=== PATIENT | male | born 1990 | race Caucasian/White ===

== ENCOUNTER 2016-12-28 07:56 | Emergency (ER) | payer OTHER ==
--- NOTE | 2016-12-28 11:52 | ED CLINICAL REPORT ---
Clinical Report - Physicians/Mid Levels Located Within [facility] [address] [place] [address] 12/28/2016 7:59 Patient: GRZEGORZ GONZALEZ Arrived- By private vehicle. Historian- patient. HISTORY OF PRESENT ILLNESS Chief Complaint: VOMITING and DIARRHEA. This started this morning, is still present (staying the same) and is now gone. It was abrupt in onset and has been constant. No recent travel. He has had nausea, vomiting and diarrhea. No flank pain, history of possible bad food exposure or known contact with a sick individual. Has not recently been camping or on antibiotics. The illness is described as moderate. (described vomit and diarrhea as nbnb. had egg salad yesterday. no other unusual foods.). Similar symptoms previously: None. Recent medical care: Not recently seen/assessed. REVIEW OF SYSTEMS No fever, chest pain, difficulty breathing or skin rash. All systems otherwise negative, except as recorded above. PAST HISTORY See nurses notes. Medications: None. Allergies: None. SOCIAL HISTORY Never smoker. No alcohol use or drug use. Is a local resident. ADDITIONAL NOTES The nursing notes have been reviewed. PHYSICAL EXAM Vital Signs: Blood pressure normal. Oxygen saturation normal. Appearance: Alert. Oriented X3. No acute distress. Eyes: Pupils equal, round and reactive to light. Eyes normal inspection. ENT: Pharynx normal. Neck: Normal inspection. Neck supple. CVS: Normal heart rate and rhythm. Heart sounds normal. Pulses normal. Respiratory: No respiratory distress. Wheezing present. Rhonchi present. Rales present. Breath sounds normal. Abdomen: Soft and nontender. Bowel sounds normal. Back: Normal inspection. Skin: Skin warm and dry. Normal skin color. No rash. Normal skin turgor. Extremities: Extremities exhibit normal ROM. No lower extremity edema. LABS, X-RAYS, AND EKG Laboratory Tests: UA-Culture if indicated: (DARRON: 12/28/2016 09:06) ( MsgRcvd 12/28/2016 09:41) Final results Test Result Flag Units (Reference) URINE COLOR YELLOW URINE APPEARANCE CLEAR URINE GLUCOSE NEGATIVE (NEGATIVE) URINE BILIRUBIN NEGATIVE (NEGATIVE) URINE KETONE NEGATIVE (NEGATIVE) URINE SPECIFIC GRAVITY 1.020 (1.010-1.030) URINE PH 8.5 H (5.0-8.0) URINE PROTEIN TRACE (NEGATIVE) URINE UROBILINOGEN 0.2 EU/dL (0.2-1.0) URINE NITRITE NEGATIVE (NEGATIVE) URINE BLOOD NEGATIVE (NEGATIVE) URINE LEUK ESTERASE NEGATIVE (NEGATIVE) URINE RBC NONE SEEN rbc/hpf (0-1) URINE WBC 0-1 wbc/hpf (0-1) URINE EPITHELIAL CELLS 0-1 EPI/hpf (0-5) URINE BACTERIA FEW (1+) (NONE SEEN) URINE COMMENT CULT NOT INDICATED URINE CULTURES ARE SET-UP BASED ON THE FOLLOWING CRITERIA:POSITIVE NITRITEPOSITIVE LEUKOCYTE ESTERASEGREATER THAN 10 WHITE BLOOD CELLSMODERATE (2+) OR GREATER BACTERIA CBC w Diff: (DARRON: 12/28/2016 09:00) ( [facility] 12/28/2016 09:09) Final results Test Result Flag Units (Reference) WHITE BLOOD COUNT 10.9 K/uL (4.5-11.5) RED BLOOD COUNT 5.87 M/uL (4.50-5.90) HEMOGLOBIN 16.5 gm/dL (13.5-17.5) HEMATOCRIT 49.4 % (41.0-53.0) MEAN CELL VOLUME 84 fL (80-100) MEAN CORPUSCULAR HGB 28 pg (26-34) MEAN CORPUSCULAR HGB CONC 33 g/dL (31-37) RED CELL DISTRIBUTION WIDTH 13.2 % (11.6-14.8) PLATELET COUNT 265 K/uL (150-400) NEUTROPHIL % 94.1 H % (50-75) LYMPH % 2.9 L % (25-40) MONO % 2.6 L % (3-14) EOSINOPHIL % 0.4 % (0-4) BASOPHIL % 0 % (0-2) CMP: (DARRON: 12/28/2016 09:00) ( [facility] 12/28/2016 09:30) Final results Test Result Flag Units (Reference) GLUCOSE 136 H mg/dL (70-110) BUN 17 mg/dL (7-18) CREATININE 1.0 mg/dL (0.6-1.3) Estimated GFR >60 mL/min Estimated GFR- >60 mL/min Note: Persistent reduction over 3 months in eGFR<60 mL/min/1.73 m2 defines CKD. Patients with eGFR values>=60 mL/min/1.73 m2 may also have CKD if evidence ofpersistent proteinuria. Additional information may be foundat www.kidney.org. SODIUM 140 mmol/L (136-145) POTASSIUM 4.3 mmol/L (3.5-5.1) CHLORIDE 101 mmol/L (98-107) CARBON DIOXIDE 26 mmol/L (21-32) CALCIUM 8.6 mg/dL (8.5-10.1) TOTAL PROTEIN 8.0 g/dL (6.4-8.2) ALBUMIN 3.9 g/dL (3.3-5.0) BILIRUBIN, TOTAL 0.7 mg/dL (0.0-1.0) ALKALINE PHOSPHATASE 89 U/L (46-116) AST (SGOT) 31 U/L (15-37) ALT (SGPT) 76 U/L (12-78) LIPASE 103 U/L (73-393) . PROGRESS AND PROCEDURES Course of Care: Patient is stable. Patient/family counseled. Old medical records ordered. Old records unavailable. Disposition: Discharged. Condition: stable. CLINICAL IMPRESSION Vomiting with nausea. Food poisoning. INSTRUCTIONS No driving or operating machinery while taking medication. Drink plenty of fluids. Warnings: Further evaluation is necessary. GENERAL WARNINGS: Return or contact your physician immediately if your condition worsens or changes unexpectedly, if not improving as expected, or if other problems arise. Prescription Medications: Zofran 4 mg: Take 1 orally every six hours as needed for nausea/vomiting. Dispense ten (10). No refills. Substitution is permissible. Phenergan suppositories 25 mg: Insert 1 rectally every 4 to 6 hours as needed for nausea or vomiting. Dispense ten (10). No refills. Substitution is permissible. Understanding of the discharge instructions verbalized by patient and family. Follow-up with: [facility], , , [address], , [facility] [address] Follow up tomorrow. (Electronically signed by Antonio Gutiérrez MD 12/29/2016 22:02)
--- NOTE | 2016-12-28 11:52 | ED NURSING NOTES ---
Clinical Report - Nurses [facility] [address] [place] [address] 12/28/2016 7:59 Patient: GRZEGORZ GONZALEZ TRIAGE Triage time 08:04. Acuity: LEVEL 4. Chief Complaint: NAUSEA and VOMITING. 08:09 12/28/16. Alert. No acute distress. SEPSIS SCREEN: Sepsis Screen. Negative (no infection suspected/documented). SHIRA COMA SCORE: [place] Coma Scale: 15- eyes open spontaneously (4); best verbal response- oriented x 4 (5); best motor response- obeys commands (6). --08:09 Cecilia Tena R.N. 08:04 12/28/16. BP: 141/80. HR: 100. RR: 17. O2 saturation: 98%. Temp: 98 F. Pain level now: 10. Additional comments: stomach pain. --08:09 Cecilia Tena R.N. Weight: 117.9 kg estimated. Height/Length: 72 inches. BMI: 35.3. --12:04 Cecilia Tena R.N. Medications None. --08:05 Cecilia Tena R.N. Allergies None. --08:06 Cecilia Tena R.N. History Historian: patient. This started today. ( SOB. pt states "I have to force myself to breathe, it's not voluntary"). Treatment DIRECTOR LONG TERM CARE: (2 tabs pepto bismal). PAST MEDICAL HX: Immunizations: status is unknown. SOCIAL HX: Never smoker. Occasional alcohol use. No drug use. FALL RISK ASSESSMENT: Fall risk assessment completed. No fall risk identified. NUTRITIONAL RISK ASSESSMENT: The nutritional risk assessment revealed no deficiencies. FUNCTIONAL ASSESSMENT: Functional assessment: no impairments noted. LEARNING NEEDS ASSESSMENT: The learning needs assessment revealed no barriers. SKIN INTEGRITY ASSESSMENT: Skin integrity risk assessment completed. No skin integrity risk identified. --08:09 Cecilia Tena R.N. PROBLEMS: Obesity. --08:06 Cecilia Tena R.N. Interventions ID band on patient. To treatment room. --08:09 Cecilia Tena R.N. PHYSICAL ASSESSMENT late entry - 09:10. GENERAL / NEURO / PSYCH: Alert. Oriented X 4. Appears in no acute distress. Appears anxious. CVS: Capillary refill less than 2 seconds. Pulses within normal limits. SKIN: Skin intact. Skin is warm and dry. Normal skin turgor. --09:22 Cecilia Tena R.N. NURSING PROGRESS NOTES 08:59 12/28/2016 Site #1 started via IV in the right antecubital space with an 20g angiocath; one attempt. Blood drawn: rainbow set. Labeled in the presence of the patient and sent to the lab. Saline lock flushed with 5 mL saline. --09:09 Cecilia Tena R.N. 09:08 12/28/2016 GI cocktail white * PO 50mL aluminum hydrox-simethicone 30mL lidocaine viscous 2% 20mL --09:18 Cecilia Tena R.N. 09:09 12/28/2016 Started bag #1 1000 mL IV Fluids IV NS (Saline); bolus of 1000 mL over 1 hour(s) via site #1. Allergies verified and confirmed 5 rights. IV patency established. IV site checked: no pain, redness, or swelling. IV flushed thoroughly pre- and post-medication administration. --09:09 Cecilia Tena R.N. 09:09 12/28/2016 Zofran (Ondansetron HCl) IVP 4 mg given over 2 minute(s) via site #1. Allergies verified and confirmed 5 rights. IV patency established. IV site checked: no pain, redness, or swelling. IV flushed thoroughly pre- and post-medication administration. IVP given by RN. --09:09 Cecilia Tena R.N. 09:10 12/28/16. Two patient identifiers checked. Call light placed in reach. Side rails up x 1. Bed placed in lowest position. Brakes of bed on. --09:10 Cecilia Tena R.N. 09:20 12/28/16. Patient ID band checked for patient name and birthdate: patient confirmed. Clean catch urine collected with return of yellow-colored urine; sample sent to lab for urinalysis. Specimen labeled in the presence of the patient. --09:20 Cecilia Tena R.N. 09:27 12/28/16. Reassurance given to the patient. Call light placed in reach. Side rails up x 1. Bed placed in lowest position. Brakes of bed on. Patient and family informed about reason for wait and about plan of care. --09:27 Cecilia Tena R.N. 09:30 12/28/16. Reassessment after fluids administered and medication administered. He is calm and resting quietly. Overall patient status is improved. ( Pt states he feels better after zofran and GI cocktail. Room lights dimmed to promote rest.). --09:30 Cecilia Tena R.N. 10:12 12/28/16. Patient and family informed about reason for wait and about plan of care. ( pt states he is no longer nauseous and does not have any pain. pt states he was able to sleep for a bit.). --10:12 Cecilia Tena R.N. 10:27 12/28/2016 IV Fluids IV NS Discontinued: bag #1 completed. Total amount infused: 1000 mL. IV patency established. IV site checked: no pain, redness, or swelling. IV flushed thoroughly. --10:27 Cecilia Tena R.N. 10:27 12/28/16. ( pt ambulated to restroom.). --10:27 Cecilia Tena R.N. 11:02 12/28/16. Overall patient status is the same- he states feels the same. GENERAL / NEURO / PSYCH: (anxious). He is alert, appears uncomfortable and is oriented and cooperative. RESPIRATORY: No respiratory distress. Respirations not labored. SKIN: Skin is warm, dry, warm and dry. --11:02 Jailyn Melendez R.N. 11:00 12/28/16. BP: 124/64. HR: 93. RR: 18. O2 saturation: 100% on nasal cannula at 2 liters/minute. Pain level now: 0/10. --11:02 Jailyn Melendez R.N. late entry - 11:22. Patient informed about reason for wait and about plan of care. ( pt states he feels SOB again. Dr. Gutiérrez notified. water given to pt.). --11:30 Cecilia Tena R.N. 11:27 12/28/16. RR: 16. O2 saturation: 99%. --11:30 Cecilia Tena R.N. DISPOSITION / DISCHARGE 12:02 12/28/16. No learning barriers present. Discharge instructions provided and reviewed. Reviewed warnings. Reviewed medication(s). Treatments reviewed. Reviewed diet. Work note given. Patient and resistance brazer verbalized understanding. Written instructions provided in Persian. The patient was discharged by the physician. He was discharged home. He left the Emergency Department ambulatory. --12:02 Cecilia Tena R.N. 12:00 12/28/16. BP: 125/77. HR: 98. RR: 16. O2 saturation: 100%. Temp: deferred. Pain level now: 12/03. --12:02 Cecilia Tena R.N. Departure time: 12:02. --12:03 Cecilia Tena R.N. Locked/Released at 12/28/2016 12:05 by Cecilia Tena R.N.
--- NOTE | 2016-12-28 11:52 | ED ORDER SUMMARY ---
..... Patient: GRZEGORZ GONZALEZ OrderSheet [facility] VisitID: [id number] [address] [place] [address] 26y, M Registration Date/Time: 12/28/2016 ORDER SHEET Weight: 117.9 kg (estimated) Allergies: None GENERAL ORDERS: CBC w Diff Urgent (08:12/28/2016 Renee Henson) (8:14 Lonnie R.N.) CMP Urgent (08:12/28/2016 Renee Henson) (8:14 Lonnie R.N.) UA-Culture if indicated Urgent (08:12/28/2016 Renee Henson) (8:14 Lonnie R.N.) Lipase Urgent (08:12/28/2016 Renee Henson) (8:14 RMnilda R.N.) CT Abd/Pel w Cont (No) (gfr > 60) Urgent (09:12/28/2016 Renee Henson) (Cancelled: Other9:14 Renee Henson) MEDICATION ORDERS: GI Cocktail WHITE PO 30 mL (NOW) (08:14 12/28/2016 Renee Henson) (Ack 8:14 RMarsden R.N.) (9:18 RMarsden R.N.) IV FLUIDS: IV NS : initial bolus 1000 mL (1000 mL/hr), then none - for X1 (NOW) (08:13 12/28/2016 Renee Henson) (Ack 8:14 Lonnie R.N.) (9:09 Lonnie R.N.) Zofran IV 4 mg (NOW) (08:12/28/2016 Renee Henson) (Ack 8:14 RMnilda R.N.) (9:09 Lonnie R.N.) ORDER SHEET NOTES: [Electronically signed by Cecilia Tena R.N. (12:12/28/2016)] [Electronically signed by Antonio Gutiérrez MD (22:02 12/29/2016)] [Electronically locked/signed by Cecilia Tena R.N. (12:12/28/2016)]
--- NOTE | 2016-12-28 11:52 | ED CLINICAL REPORT ---
Clinical Report - Physicians/Mid Levels [facility] [address] [place] [address] 12/28/2016 7:59 Patient: GRZEGORZ GONZALEZ Arrived- By private vehicle. Historian- patient. HISTORY OF PRESENT ILLNESS Chief Complaint: VOMITING and DIARRHEA. This started this morning, is still present (staying the same) and is now gone. It was abrupt in onset and has been constant. No recent travel. He has had nausea, vomiting and diarrhea. No flank pain, history of possible bad food exposure or known contact with a sick individual. Has not recently been camping or on antibiotics. The illness is described as moderate. (described vomit and diarrhea as nbnb. had egg salad yesterday. no other unusual foods.). Similar symptoms previously: None. Recent medical care: Not recently seen/assessed. REVIEW OF SYSTEMS No fever, chest pain, difficulty breathing or skin rash. All systems otherwise negative, except as recorded above. PAST HISTORY See nurses notes. Medications: None. Allergies: None. SOCIAL HISTORY Never smoker. No alcohol use or drug use. Is a local resident. ADDITIONAL NOTES The nursing notes have been reviewed. PHYSICAL EXAM Vital Signs: Blood pressure normal. Oxygen saturation normal. Appearance: Alert. Oriented X3. No acute distress. Eyes: Pupils equal, round and reactive to light. Eyes normal inspection. ENT: Pharynx normal. Neck: Normal inspection. Neck supple. CVS: Normal heart rate and rhythm. Heart sounds normal. Pulses normal. Respiratory: No respiratory distress. Wheezing present. Rhonchi present. Rales present. Breath sounds normal. Abdomen: Soft and nontender. Bowel sounds normal. Back: Normal inspection. Skin: Skin warm and dry. Normal skin color. No rash. Normal skin turgor. Extremities: Extremities exhibit normal ROM. No lower extremity edema. LABS, X-RAYS, AND EKG Laboratory Tests: UA-Culture if indicated: (DARRON: 12/28/2016 09:06) ( MsgRcvd 12/28/2016 09:41) Final results Test Result Flag Units (Reference) URINE COLOR YELLOW URINE APPEARANCE CLEAR URINE GLUCOSE NEGATIVE (NEGATIVE) URINE BILIRUBIN NEGATIVE (NEGATIVE) URINE KETONE NEGATIVE (NEGATIVE) URINE SPECIFIC GRAVITY 1.020 (1.010-1.030) URINE PH 8.5 H (5.0-8.0) URINE PROTEIN TRACE (NEGATIVE) URINE UROBILINOGEN 0.2 EU/dL (0.2-1.0) URINE NITRITE NEGATIVE (NEGATIVE) URINE BLOOD NEGATIVE (NEGATIVE) URINE LEUK ESTERASE NEGATIVE (NEGATIVE) URINE RBC NONE SEEN rbc/hpf (0-1) URINE WBC 0-1 wbc/hpf (0-1) URINE EPITHELIAL CELLS 0-1 EPI/hpf (0-5) URINE BACTERIA FEW (1+) (NONE SEEN) URINE COMMENT CULT NOT INDICATED URINE CULTURES ARE SET-UP BASED ON THE FOLLOWING CRITERIA:POSITIVE NITRITEPOSITIVE LEUKOCYTE ESTERASEGREATER THAN 10 WHITE BLOOD CELLSMODERATE (2+) OR GREATER BACTERIA CBC w Diff: (DARRON: 12/28/2016 09:00) ( [facility] 12/28/2016 09:09) Final results Test Result Flag Units (Reference) WHITE BLOOD COUNT 10.9 K/uL (4.5-11.5) RED BLOOD COUNT 5.87 M/uL (4.50-5.90) HEMOGLOBIN 16.5 gm/dL (13.5-17.5) HEMATOCRIT 49.4 % (41.0-53.0) MEAN CELL VOLUME 84 fL (80-100) MEAN CORPUSCULAR HGB 28 pg (26-34) MEAN CORPUSCULAR HGB CONC 33 g/dL (31-37) RED CELL DISTRIBUTION WIDTH 13.2 % (11.6-14.8) PLATELET COUNT 265 K/uL (150-400) NEUTROPHIL % 94.1 H % (50-75) LYMPH % 2.9 L % (25-40) MONO % 2.6 L % (3-14) EOSINOPHIL % 0.4 % (0-4) BASOPHIL % 0 % (0-2) CMP: (DARRON: 12/28/2016 09:00) ( [facility] 12/28/2016 09:30) Final results Test Result Flag Units (Reference) GLUCOSE 136 H mg/dL (70-110) BUN 17 mg/dL (7-18) CREATININE 1.0 mg/dL (0.6-1.3) Estimated GFR >60 mL/min Estimated GFR- >60 mL/min Note: Persistent reduction over 3 months in eGFR<60 mL/min/1.73 m2 defines CKD. Patients with eGFR values>=60 mL/min/1.73 m2 may also have CKD if evidence ofpersistent proteinuria. Additional information may be foundat www.kidney.org. SODIUM 140 mmol/L (136-145) POTASSIUM 4.3 mmol/L (3.5-5.1) CHLORIDE 101 mmol/L (98-107) CARBON DIOXIDE 26 mmol/L (21-32) CALCIUM 8.6 mg/dL (8.5-10.1) TOTAL PROTEIN 8.0 g/dL (6.4-8.2) ALBUMIN 3.9 g/dL (3.3-5.0) BILIRUBIN, TOTAL 0.7 mg/dL (0.0-1.0) ALKALINE PHOSPHATASE 89 U/L (46-116) AST (SGOT) 31 U/L (15-37) ALT (SGPT) 76 U/L (12-78) LIPASE 103 U/L (73-393) . PROGRESS AND PROCEDURES Course of Care: Patient is stable. Patient/family counseled. Old medical records ordered. Old records unavailable. Disposition: Discharged. Condition: stable. CLINICAL IMPRESSION Vomiting with nausea. Food poisoning. INSTRUCTIONS No driving or operating machinery while taking medication. Drink plenty of fluids. Warnings: Further evaluation is necessary. GENERAL WARNINGS: Return or contact your physician immediately if your condition worsens or changes unexpectedly, if not improving as expected, or if other problems arise. Prescription Medications: Zofran 4 mg: Take 1 orally every six hours as needed for nausea/vomiting. Dispense ten (10). No refills. Substitution is permissible. Phenergan suppositories 25 mg: Insert 1 rectally every 4 to 6 hours as needed for nausea or vomiting. Dispense ten (10). No refills. Substitution is permissible. Understanding of the discharge instructions verbalized by patient and family. Follow-up with: [facility], , , [address], , [facility] [address] Follow up tomorrow. (Electronically signed by Antonio Gutiérrez MD 12/29/2016 22:02)
--- NOTE | 2016-12-28 11:52 | ED ORDER SUMMARY ---
..... Patient: GRZEGORZ GONZALEZ OrderSheet [facility] VisitID: [id number] [address] [place] [address] 26y, M Registration Date/Time: 12/28/2016 ORDER SHEET Weight: 117.9 kg (estimated) Allergies: None GENERAL ORDERS: CBC w Diff Urgent (08:12/28/2016 Renee Henson) (8:14 Lonnie R.N.) CMP Urgent (08:12/28/2016 Renee Henson) (8:14 Lonnie R.N.) UA-Culture if indicated Urgent (08:12/28/2016 Renee Henson) (8:14 Lonnie R.N.) Lipase Urgent (08:12/28/2016 Renee Henson) (8:14 RMnilda R.N.) CT Abd/Pel w Cont (No) (gfr > 60) Urgent (09:12/28/2016 Renee Henson) (Cancelled: Other9:14 Renee Henson) MEDICATION ORDERS: GI Cocktail WHITE PO 30 mL (NOW) (08:14 12/28/2016 Renee Henson) (Ack 8:14 RMarsden R.N.) (9:18 RMarsden R.N.) IV FLUIDS: IV NS : initial bolus 1000 mL (1000 mL/hr), then none - for X1 (NOW) (08:13 12/28/2016 Renee Henson) (Ack 8:14 Lonnie R.N.) (9:09 Lonnie R.N.) Zofran IV 4 mg (NOW) (08:12/28/2016 Renee Henson) (Ack 8:14 RMnilda R.N.) (9:09 Lonnie R.N.) ORDER SHEET NOTES: [Electronically signed by Cecilia Tena R.N. (12:12/28/2016)] [Electronically signed by Antonio Gutiérrez MD (22:02 12/29/2016)] [Electronically locked/signed by Cecilia Tena R.N. (12:12/28/2016)]
--- NOTE | 2016-12-30 02:39 | ED MAR SUMMARY ---
..... Medication Administration Record [facility] [address] [place] [address] Patient: GRZEGORZ GONZALEZ Visit ID: [id number] 26y, M Weight: 117.9 kg Height/Length: 72 in BMI: 35.3 ALLERGIES: None Given 09:08 12/28/2016 Cecilia Tena R.N. Medication Administered: GI cocktail white *, Dose: 50mL * PO. Medication Ordered: GI Cocktail WHITE PO 30 mL (NOW). Start 09:09 12/28/2016 Cecilia Tena R.N., Stop 10:27 12/28/2016 Cecilia Tena R.N. Medication Administered: IV NS (SALINE), Dose: IV Fluids, Bolus: 1000 mL over 1 hour(s), Dispensed: 1000 mL bag, Site: #1 right AC. Medication Ordered: IV NS : initial bolus 1000 mL (1000 mL/hr), then none - for X1 (NOW). Given 09:12/28/2016 Cecilia Tena R.NDian Medication Administered: ZOFRAN [IVP] (ONDANSETRON HCL), Dose: 4 mg IVP over 2 minute(s), Site: #1 right AC. Medication Ordered: Zofran IV 4 mg (NOW).
--- NOTE | 2016-12-30 02:39 | ED MED RECONCILIATION SUMMARY ---
Patient: GRZEGORZ GONZALEZ Medication Reconciliation Report [facility] VisitID: [id number] [address] [place] [address] 26y, M Registration Date/Time: 12/28/2016 Weight: 117.9 kg Height/Length: 72 in. BMI: 35.3 ALLERGIES: None The patient's Home Medications are listed below: NONE. The source(s) of the original Home Medication information: Not obtained. The following Medications were given to the patient in the Emergency Department: IV NS IV Fluids bolus 1000 mL over 1 hour(s), administered: 12/28/2016 9:09:00 AM Zofran [IVP] IVP 4 mg, administered: 12/28/2016 9:09:00 AM GI cocktail white PO 50mL, administered: 12/28/2016 9:08:00 AM The following Medications were prescribed to the patient: Zofran 4 mg: Take 1 orally every six hours as needed for nausea/vomiting. Dispense ten (10). No refills. Substitution is permissible. -- Antonio Gutiérrez MD Phenergan suppositories 25 mg: Insert 1 rectally every 4 to 6 hours as needed for nausea or vomiting. Dispense ten (10). No refills. Substitution is permissible. -- Antonio Gutiérrez MD
--- NOTE | 2016-12-30 02:39 | ED MAR SUMMARY ---
..... Medication Administration Record [facility] [address] [place] [address] Patient: GRZEGORZ GONZALEZ Visit ID: [id number] 26y, M Weight: 117.9 kg Height/Length: 72 in BMI: 35.3 ALLERGIES: None Given 09:08 12/28/2016 Cecilia Tena R.N. Medication Administered: GI cocktail white *, Dose: 50mL * PO. Medication Ordered: GI Cocktail WHITE PO 30 mL (NOW). Start 09:09 12/28/2016 Cecilia Tena R.N., Stop 10:27 12/28/2016 Cecilia Tena R.N. Medication Administered: IV NS (SALINE), Dose: IV Fluids, Bolus: 1000 mL over 1 hour(s), Dispensed: 1000 mL bag, Site: #1 right AC. Medication Ordered: IV NS : initial bolus 1000 mL (1000 mL/hr), then none - for X1 (NOW). Given 09:12/28/2016 Cecilia Tena R.NDian Medication Administered: ZOFRAN [IVP] (ONDANSETRON HCL), Dose: 4 mg IVP over 2 minute(s), Site: #1 right AC. Medication Ordered: Zofran IV 4 mg (NOW).
--- NOTE | 2016-12-30 02:39 | ED DISCHARGE INSTRUCTIONS ---
Patient: GRZEGORZ GONZALEZ General Instructions [facility] VisitID: [id number] [address] [place] [address] 26y, M Registration Date/Time: 12/28/2016 Vomiting with nausea. Food poisoning. INSTRUCTIONS No driving or operating machinery while taking medication. Drink plenty of fluids. Warnings: Further evaluation is necessary. GENERAL WARNINGS: Return or contact your physician immediately if your condition worsens or changes unexpectedly, if not improving as expected, or if other problems arise. Prescription Medications: Zofran 4 mg: Take 1 orally every six hours as needed for nausea/vomiting. Dispense ten (10). No refills. Substitution is permissible. Phenergan suppositories 25 mg: Insert 1 rectally every 4 to 6 hours as needed for nausea or vomiting. Dispense ten (10). No refills. Substitution is permissible. Understanding of the discharge instructions verbalized by patient and family. Follow-up with: [facility], , , [address], [place], [id number] Follow up tomorrow. ADDITIONAL INFORMATION Vomiting [6Yr-Adult] Vomiting is a common symptom that may be due to different causes. These include gastroenteritis ("stomach flu"), food poisoning and gastritis. There are other more serious causes of vomiting which may be hard to diagnose early in the illness. Therefore, it is important to watch for the warning signs listed below. The main danger from repeated vomiting is dehydration. This is due to excess loss of water and minerals from the body. When this occurs, body fluids must be replaced. Home Care: If symptoms are severe, rest at home for the next 24 hours. You may use acetaminophen (Tylenol) or ibuprofen (Motrin, Advil) to control fever, unless another medicine was prescribed. [NOTE : If you have chronic liver or kidney disease or ever had a stomach ulcer or GI bleeding, talk with your doctor before using these medicines.] (Aspirin should never be used in anyone under 18 years of age who is ill with a fever. It may cause severe liver damage.) Avoid tobacco and alcohol use, which may worsen your symptoms. If medicines for vomiting were prescribed, take as directed. Once vomiting stops, then follow these guidelines: During The First 12-24 Hours follow the diet below: FRUIT JUICES: Apple, grape juice, clear fruit drinks, and electrolyte replacement drinks. BEVERAGES: Soft drinks without caffeine; mineral water (plain or flavored), decaffeinated tea and coffee. SOUPS: Clear broth, consomm and bouillon DESSERTS: Plain gelatin, popsicles and fruit juice bars. As you feel better, you may add 6-8 ounces of yogurt per day. During The Next 24 Hours you may add the following to the above: Hot cereal, plain toast, bread, rolls, crackers Plain noodles, rice, mashed potatoes, chicken noodle or rice soup Unsweetened canned fruit (avoid pineapple), bananas Limit caffeine and chocolate. No spices or seasonings except salt. During The Next 24 Hours Gradually resume a normal diet, as you feel better and your symptoms lessen. Follow Up with your doctor as advised if you are not improving over the next 2-3 days. Get Prompt Medical Attention if any of the following occur: Constant right-sided lower abdominal pain or increasing general abdominal pain Continued vomiting (unable to keep liquids down) for 24 hours Frequent diarrhea (more than 5 times a day); blood (red or black color) or mucus in diarrhea Reduced urine output or extreme thirst Weakness, dizziness or fainting Unusually drowsy or confused Fever of 100.4F (38C) oral or higher, not better with fever medication Yellow color of the eyes or skin Food Poisoning Or Viral Gastroenteritis (6Yr-Adult) You have a stomach illness that is likely either food poisoning or viral gastroenteritis. Food poisoning occurs from1 to 24 hours after eating contaminated food and lasts up to 1 to 2 days. Viral gastroenteritis is commonly known as the stomach flu. It may last up to a week. Symptoms of both illnesses may include vomiting, diarrhea, fever, and stomach cramping. Antibiotics are not an effective treatment for either problem, but simple home treatment can give relief. Home Care: If symptoms are severe, rest at home for the next 24 hours. You may use acetaminophen (Tylenol) or ibuprofen (Motrin, Advil) to control fever, unless another medication was prescribed. [NOTE: If you have chronic liver or kidney disease or ever had a stomach ulcer or GI bleeding, talk with your doctor before using these medications. Do not give aspirin to anyone under 18 years of age who is ill with a fever.] Avoid tobacco and alcohol consumption. These may worsen your symptoms. If medicines for diarrhea or vomiting were prescribed, take these only as directed. Never take these without a healthcare providers approval. During the first12 to 24hours follow the diet below: BEVERAGES: Sport drinks like Gatorade, soft drinks without caffeine; moises helena, mineral water (plain or flavored), decaffeinated tea and coffee. SOUPS: Clear broth, consomm and bouillon DESSERTS: Plain gelatin (Jell-O), popsicles and fruit juice bars. During the next 24 hours you may add the following to the above: Hot cereal, plain toast, bread, rolls, crackers Plain noodles, rice, mashed potatoes, chicken noodle or rice soup Unsweetened canned fruit (avoid pineapple), bananas Limit fat intake to less than 15 grams per day by avoiding margarine, butter, oils, mayonnaise, sauces, gravies, fried foods, peanut butter, meat, poultry, and fish. Limit fiber; avoid raw or cooked vegetables, fresh fruits (except bananas) and bran cereals. Limit caffeine and chocolate. No spices or seasonings except salt. Gradually resume a normal diet as you feel better and your symptoms lessen. Follow Up with your doctor as advised if you are not better in 2 days. If a stool (diarrhea) sample was taken, you may call in 2 days (or as directed) for the results. Get Prompt Medical Attention if any of the following occur: Increasing abdominal pain or constant lower right abdominal pain Continued vomiting (unable to keep liquids down) Frequent diarrhea (more than 5 times a day) Blood in vomit or stool (black or red color) Signs of dehydration: increased thirst, dark urine, reduced or no urine output, dry mouth and tongue, tireness or weakness, dizziness when standing, rapid breathinng New rash Fever of 100.4F (38C) oral or higher, not better with fever medication Ondansetron Oral disintegrating tablet What is this medicine? ONDANSETRON (on MING se richard) is used to treat nausea and vomiting caused by chemotherapy. It is also used to prevent or treat nausea and vomiting after surgery. How should I use this medicine? These tablets are made to dissolve in the mouth. Do not try to push the tablet through the foil backing. With dry hands, peel away the foil backing and gently remove the tablet. Place the tablet in the mouth and allow it to dissolve, then swallow. While you may take these tablets with water, it is not necessary to do so. Talk to your sanitation truck driver regarding the use of this medicine in children. Special care may be needed. What side effects may I notice from receiving this medicine? Side effects that you should report to your doctor or health director of health care marketing as soon as possible: allergic reactions like skin rash, itching or hives, swelling of the face, lips, or tongue breathing problems dizziness fast or irregular heartbeat feeling faint or lightheaded, falls fever and chills swelling of the hands and feet tightness in the chest Side effects that usually do not require medical attention (report to your doctor or health director of health care marketing if they continue or are bothersome): constipation or diarrhea headache What may interact with this medicine? Do not take this medicine with any of the following medications: -apomorphine -cisapride -dofetilide -dronedarone -pimozide -thioridazine -ziprasidone This medicine may also interact with the following medications: -carbamazepine -phenytoin -rifampicin -tramadol -other medicines that prolong the QT interval (cause an abnormal heart rhythm) What if I miss a dose? If you miss a dose, take it as soon as you can. If it is almost time for your next dose, take only that dose. Do not take double or extra doses. Where should I keep my medicine? Keep out of the reach of children. Store between 2 and 30 degrees C (36 and 86 degrees F). Throw away any unused medicine after the expiration date. What should I tell my health care provider before I take this medicine? They need to know if you have any of these conditions: heart disease history of irregular heartbeat liver disease low levels of magnesium or potassium in the blood an unusual or allergic reaction to ondansetron, granisetron, other medicines, foods, dyes, or preservatives or trying to get breast-feeding What should I watch for while using this medicine? Check with your doctor or health director of health care marketing as soon as you can if you have any sign of an allergic reaction. Promethazine Hydrochloride Rectal suppository What is this medicine? PROMETHAZINE (proe METH a zeen) is an antihistamine. It is used to treat allergic reactions and to treat or prevent nausea and vomiting from illness or motion sickness. It is also used to make you sleep before surgery, and to help treat pain or nausea after surgery. How should I use this medicine? This medicine is for rectal use only. Do not take by mouth. Wash your hands before and after use. Take off the foil wrapping. Wet the tip of the suppository with cold tap water to make it easier to use. Lie on your side with your lower leg straightened out and your upper leg bent forward toward your stomach. Lift upper buttock to expose the rectal area. Apply gentle pressure to insert the suppository completely into the rectum, pointed end first. Hold buttocks together for a few seconds. Remain lying down for about 15 minutes to avoid having the suppository come out. Do not use more often than directed. Talk to your sanitation truck driver regarding the use of this medicine in children. Special care may be needed. This medicine should not be given to infants and children younger than 2 years old. What side effects may I notice from receiving this medicine? Side effects that you should report to your doctor or health director of health care marketing as soon as possible: blurred vision irregular heartbeat, palpitations or chest pain muscle or facial twitches pain or difficulty passing urine seizures skin rash slowed or shallow breathing unusual bleeding or bruising yellowing of the eyes or skin Side effects that usually do not require medical attention (report to your doctor or health director of health care marketing if they continue or are bothersome): headache nightmares, agitation, nervousness, excitability, not able to sleep (these are more likely in children) stuffy nose What may interact with this medicine? Do not take this medicine with any of the following medications: medicines called MAO Inhibitors like Nardil, Parnate, Marplan, Eldepryl other phenothiazines like trimethobenzamide This medicine may also interact with the following medications: barbiturates such as phenobarbital bromocriptine certain antidepressants certain antihistamines used in allergy or cold medicines epinephrine levodopa medicines for sleep medicines for mental problems and psychotic disturbances medicines for movement abnormalities as in Parkinson's disease, or for gastrointestinal problems muscle relaxants prescription pain medicines What if I miss a dose? If you miss a dose, use it as soon as you can. If it is almost time for your next dose, use only that dose. Do not use double doses. Where should I keep my medicine? Keep out of the reach of children. Store in a refrigerator between 2 and 8 degrees C (36 and 46 degrees F). Throw away any unused medicine after the expiration date. What should I tell my health care provider before I take this medicine? They need to know if you have any of these conditions: glaucoma high blood pressure or heart disease kidney disease liver disease lung or breathing disease, like asthma prostate trouble pain or difficulty passing urine seizures an unusual or allergic reaction to promethazine or phenothiazines, other medicines, foods, dyes, or preservatives or trying to get breast-feeding What should I watch for while using this medicine? Tell your doctor or health director of health care marketing if your symptoms do not start to get better in 1 to 2 days. You may get drowsy or dizzy. Do not drive, use machinery, or do anything that needs mental alertness until you know how this medicine affects you. To reduce the risk of dizzy or fainting spells, do not stand or sit up quickly, especially if you are an older patient. Alcohol may increase dizziness and drowsiness. Avoid alcoholic drinks. Your mouth may get dry. Chewing sugarless gum or sucking hard candy, and drinking plenty of water may help. Contact your doctor if the problem does not go away or is severe. This medicine may cause dry eyes and blurred vision. If you wear contact lenses you may feel some discomfort. Lubricating drops may help. See your eye doctor if the problem does not go away or is severe. This medicine can make you more sensitive to the sun. Keep out of the sun. If you cannot avoid being in the sun, wear protective clothing and use sunscreen. Do not use sun lamps or tanning beds/booths. If you are diabetic, check your blood-sugar levels regularly. You have been given the following additional information: Vomiting (6Y-Adult) Food Poisoning Or Gastroenteritis (6Y-Adult) Ondansetron Oral disintegrating tablet Promethazine Hydrochloride Rectal suppository No driving or operating machinery while taking medication. (Electronically signed by Antonio Gutiérrez MD 12/29/2016 22:02)
--- NOTE | 2016-12-30 02:39 | ED MED RECONCILIATION SUMMARY ---
Patient: GRZEGORZ GONZALEZ Medication Reconciliation Report [facility] VisitID: [id number] [address] [place] [address] 26y, M Registration Date/Time: 12/28/2016 Weight: 117.9 kg Height/Length: 72 in. BMI: 35.3 ALLERGIES: None The patient's Home Medications are listed below: NONE. The source(s) of the original Home Medication information: Not obtained. The following Medications were given to the patient in the Emergency Department: IV NS IV Fluids bolus 1000 mL over 1 hour(s), administered: 12/28/2016 9:09:00 AM Zofran [IVP] IVP 4 mg, administered: 12/28/2016 9:09:00 AM GI cocktail white PO 50mL, administered: 12/28/2016 9:08:00 AM The following Medications were prescribed to the patient: Zofran 4 mg: Take 1 orally every six hours as needed for nausea/vomiting. Dispense ten (10). No refills. Substitution is permissible. -- Antonio Gutiérrez MD Phenergan suppositories 25 mg: Insert 1 rectally every 4 to 6 hours as needed for nausea or vomiting. Dispense ten (10). No refills. Substitution is permissible. -- Antonio Gutiérrez MD
== END 2016-12-28 12:02 | disposition home or self-care (01) ==
LOC: ED SRH 07:56
DX: R11.2 Nausea with vomiting, unspecified (principal); A05.9 Bacterial foodborne intoxication, unspecified
CPT/HCPCS: 90004; 90100; 92235; 95059